=== PATIENT | female | born 1970 | race Caucasian/White ===

== ENCOUNTER → 2024-01-27 13:03 | Outpatient (REF) | payer BC, SELFPAY | LOC: WDC 13:03 | PROVIDERS: ATTENDING PHYSICIAN Nurse Practitioner Adult Health; FAMILY PHYSICIAN Nurse Practitioner | DX: Z12.31 Encounter for screening mammogram for malignant neoplasm of breast (principal) | CPT/HCPCS: 77063; 77067 ==

== ENCOUNTER → 2024-03-20 10:18 | Outpatient (REF) | payer BC, SELFPAY | LOC: WDC 10:18 | PROVIDERS: ATTENDING PHYSICIAN Nurse Practitioner Adult Health; FAMILY PHYSICIAN Nurse Practitioner | DX: R92.2 Inconclusive mammogram (principal) | CPT/HCPCS: 76641 ==

== ENCOUNTER → 2025-01-26 11:20 | Outpatient (REF) | payer BC, SELFPAY | LOC: RAD 11:20 | PROVIDERS: ATTENDING PHYSICIAN Internal Medicine | DX: J06.9 Acute upper respiratory infection, unspecified (principal) | CPT/HCPCS: 71046 ==